=== PATIENT | male | born 1980 | race Caucasian/White ===

== ENCOUNTER 2018-09-08 20:30 | Emergency (ER) | payer MEDICAID ==
[~2018-09-08] VITALS: Ht 172.7 cm; Wt 77.1 kg
[2018-09-08 20:35] VITALS: BP 134/83
--- NOTE | 2018-09-08 20:35 | NUR ---
ED Nurse Note: Patient walked into ED c/o right side facial swelling rates his pain a 5/10. patient states that this has been an ongoing issue for the past 5 days, patient is alert and oriented x4, ambulatory with a steady gaiit, VSS
[2018-09-08 20:45] VITALS: BP 128/80
--- NOTE | 2018-09-08 20:45 | NUR ---
Homeless Discharge: Patient is being discharged from medical care. Awake, alert and oriented x3. After care instructions, including referral to community resources were given. Patient verbalized understanding of After care instructions; at this time patient does not request medications, equipment or placement. Patient signed patient consent in the medical record for patient destination upon discharge. All medical devices such as IV and ID band were removed. Patient ambulated out with all personal belongings with steady gait.
--- NOTE | 2018-09-08 20:54 | Emergency Room Report ---
History of Present Illness General Chief Complaint: Allergic Reaction Source: Patient Present Illness HPI 38-year-old male with history of HIV positive currently controlled here complaining of 2 days of pain inside the right nostril and swelling of the right maxillary sinus. Patient reports that he noticed abscess inside his right nostril and tried to drain the abscess however he started noticing swelling in the right side of his face immediately. Rating the pain 10 out of 10 without radiation denying any tingling or numbness. Has full range of motion of his facial nerves. Denies any sensory deficits. Denies fever and chills, ear pain, sore throat, chest pain, shortness of breath, palpitation, and other associated symptoms. Patient has not taken medication to relieve his symptoms. Denies any recent dental work for the past drainage Patient History Past Medical History: see triage record Past Surgical History: unable to obtain Pertinent Family History: none Immunizations: UTD Reviewed Nursing Documentation: PMH: Agreed; PSxH: Agreed Nursing Documentation-PMH Past Medical History Deferred: Patient Unconscious Past Medical History: No History, Except For Review of Systems All Other Systems: negative except mentioned in HPI Physical Exam Vital Signs Date Time Temp Pulse Resp B/P (MAP) Pulse Ox O2 Delivery O2 Flow Rate FiO2 09/08/18 20:34 98.8 117 22 134/83 (100) 97 Room Air Sp02 EP Interpretation: reviewed, normal General Appearance: normal inspection, well appearing, no apparent distress, alert, GCS 15 Head: normocephalic, atraumatic Eyes: bilateral eye normal inspection, bilateral eye PERRL ENT: hearing grossly normal, normal pharynx, no angioedema, normal voice, TMs + canals normal, other - Erythema present right nasal septum as well as swelling right maxillary sinus Neck: normal inspection, full range of motion, supple Respiratory: normal inspection, chest non-tender, lungs clear, normal breath sounds, no respiratory distress, no retraction Cardiovascular #1: normal inspection, regular rate, rhythm, no murmur Gastrointestinal: normal inspection, non tender, soft, no mass Rectal: deferred Neurologic: normal inspection, alert, oriented x3 Psychiatric: normal inspection, judgement/insight normal Skin: no rash Lymphatic: normal inspection, no adenopathy Medical Decision Making DIETER Attestation All my diagnosis and treatment plans were reviewed ad discussed with my supervising physician Dr. Michael Miller Attestation The treating physician has assessed and agrees that patient is medically stable for outpatient disposition Diagnostic Impression: Primary Impression: Right maxillary sinusitis Additional Impressions: Nasal abscess Cellulitis and abscess of face ER Course 38-year-old male with history of HIV positive currently controlled here complaining of 2 days of pain inside the right nostril and swelling of the right maxillary sinus. Patient reports that he noticed abscess inside his right nostril and tried to drain the abscess however he started noticing swelling in the right side of his face immediately. Rating the pain 10 out of 10 without radiation denying any tingling or numbness. Has full range of motion of his facial nerves. Denies any sensory deficits. Denies fever and chills, ear pain, sore throat, chest pain, shortness of breath, palpitation, and other associated symptoms. Patient has not taken medication to relieve his symptoms. Denies any recent dental work for the past drainage Ddx considered but are not limited to : Cellulitis, superficial infection, abscess, right maxillary sinusitis, nasal abscess Vital signs: are WNL, pt. is afebrile H&PE are most consistent with: His labs and cellulitis leading to right maxillary sinusitis ORDERS: Augmentin, prednisone, ibuprofen, Tylenol 3 ED INTERVENTIONS: None required at this time. DISCHARGE: At this time pt. is stable for d/c to home. Will provide printed patient care instructions, and any necessary prescriptions. Care plan and follow up instructions have been discussed with the patient prior to discharge. Apply ice pack to the affected area follow-up with ENT and dentist take medication as directed avoid eating with the affected area Last Vital Signs Date Time Temp Pulse Resp B/P (MAP) Pulse Ox O2 Delivery O2 Flow Rate FiO2 09/08/18 20:34 98.8 117 22 134/83 (100) 97 Room Air Disposition: HOME, SELF-CARE Condition: Stable Scripts Amoxicillin/Potassium Clav 875-125* (AUGMENTIN 875-125 TABLET*) 1 Each Tablet 1 TAB ORAL TWICE A DAY for 10 Days, #20 TAB Prov: Remy Haley 09/08/18 Ibuprofen (Ibu) 800 Mg Tablet 800 MG PO BID, #30 TAB Prov: Remy Haley 09/08/18 Acetaminophen With Codeine (T#3) (TYLENOL #3 TAB*) Y Tab 1 TAB ORAL Q8HR PRN for For Pain for 3 Days, #10 TAB Prov: Remy Haley 09/08/18 Prednisone* (PREDNISONE*) 20 Mg Tablet 40 MG ORAL DAILY for 5 Days, #20 TAB Prov: Remy Haley 09/08/18 Patient Instructions: Abscess, [id number] Additional Instructions: Take medication as directed follow-up with a primary care provider to be referred to ear nose throat doctor as well as dentist. Avoid eating with the affected area Remy Haley Sep 08, 2018 20:54
[2018-09-08] MEDS ORDERED: BACTRIM DS TAB1 EAC1 ORAL (20:56)
[2018-09-08] MEDS ORDERED: AUGMENTIN 875-1 EAC1 ORAL (20:56)
[2018-09-08] MEDS ORDERED: PREDNISONE20 MG ORAL (20:56)
[2018-09-08] MEDS ORDERED: IBU800 MG PO (20:56)
[2018-09-08] MEDS ORDERED: ACETAMINOPHEN-1 EAC1 ORAL (20:56)
== END 2018-09-08 20:55 | disposition home or self-care (01) ==
LOC: EMR 20:50
DX: J32.0 Chronic maxillary sinusitis (principal); L03.211 Cellulitis of face
CPT/HCPCS: 99283